=== PATIENT | female | born 1965 | race Caucasian/White ===

== ENCOUNTER 2024-01-24 00:04 | Emergency (ER) | payer OTHER | END 2024-01-24 01:06 | disposition home or self-care (01) | LOC: FB.ED 00:04 | DX: I80.9 Phlebitis and thrombophlebitis of unspecified site (principal); Z88.1 Allergy status to other antibiotic agents; Z88.8 Allergy status to other drugs, medicaments and biological substances | CPT/HCPCS: 99282 ==